=== PATIENT | female | born 1985 | race Caucasian/White ===

== ENCOUNTER 2017-12-20 13:44 | Emergency (ER) | payer SELFPAY ==
[2017-12-20] MEDS ORDERED: Piperacill/Tazo 3.375gm in Dex 3.375 GM/50 ML BAG IVPB STA (14:29)
[2017-12-20] MEDS ORDERED: Lidocaine 1% Inj (20ml) INFIL ONE (14:33)
[2017-12-20] MEDS ORDERED: Lidocaine Hydrochloride 5 ML INJ ONE (14:44)
[2017-12-20] MEDS ORDERED: Piperacillin/Tazobact 3.375 gm 100 ML IVPB ONE (14:45)
[2017-12-20] MEDS ORDERED: Vancomycin 1 gm/NS 200 ml 1 GM/200 ML BAG IVPB SCH (15:00)
[2017-12-20 15:08] LABS: BASO % 0.4 % (0.0-2.0); EOS % 0.4 % (0.0-4.0); HEMOGLOBIN 11.4 g/dL (11.0-16.0); LYMPH # 1.3 K/uL (1.0-4.3); LYMPH % 12.8 % (20.0-40.0); MEAN CORPUSCULAR HEMOGLOBIN 27.6 pg (27.0-31.0); MEAN CORPUSCULAR HGB CONC 33.6 g/dL (33.0-37.0); MEAN PLATELET VOLUME 9.5 fL (7.2-11.7); MONO # 0.8 K/uL (0.0-0.8); MONO % 7.6 % (0.0-10.0); NEUT # 7.8 K/uL (1.8-7.0); NEUT % 78.8 % (50.0-75.0); RBC 4.12 Mil/uL (3.80-5.20); RED CELL DISTRIBUTION WIDTH 13.6 % (11.5-14.5); WHITE BLOOD COUNT 9.9 K/uL (4.8-10.8)
[2017-12-20 15:21] LABS: ALBUMIN 3.6 g/dL (3.5-5.0); ALT/SGPT 19 U/L (9-52); AST/SGOT 18 U/L (14-36); BLOOD UREA NITROGEN 10 mg/dL (7-17); CALCIUM 9.1 mg/dl (8.6-10.4); GFR AFRICAN-AMERICAN > 60; GFR NON-AFRICAN AMERICAN > 60
--- NOTE | 2017-12-20 15:21 | C.PDOC ---
History Of Present Illness 32 y/o female, 12 weeks , sent to ER from [facility] for evaluation of abscess on right dominant hand. Patient states symptoms began 3 days ago. Denies fever. Time Seen by Provider: 12/20/17 14:04 Chief Complaint (Nursing): Abnormal Skin Integrity History Per: Patient History/Exam Limitations: no limitations Onset/Duration Of Symptoms: Days (3) Current Symptoms Are (Timing): Still Present Location Of Injury: Right: Hand Recent travel outside of the [place]: No Past Medical History Reviewed: Historical Data, Nursing Documentation, Vital Signs Vital Signs: Last Vital Signs Temp 98.9 F 12/20/17 16:39 Pulse 80 12/20/17 16:39 Resp 18 12/20/17 16:39 BP 118/76 12/20/17 16:39 Pulse Ox 100 12/21/17 12:00 - Medical History PMH: No Chronic Diseases Surgical History: No Surg Hx Family History: States: No Known Family Hx - Social History Hx Alcohol Use: No Hx Substance Use: No Review Of Systems Except As Marked, All Systems Reviewed And Found Negative. Skin: Positive for: Other (Abscess on right dominant hand ) Physical Exam - Physical Exam Appears: Non-toxic, No Acute Distress Skin: Other (erythematous, fluctuant tender region to her right hypothenar eminence region with some mild streaking to right forearm) Head: Atraumatic, Normacephalic Eye(s): bilateral: Normal Inspection, PERRL, EOMI Nose: Normal Oral Mucosa: Moist Neck: Supple Chest: Symmetrical, No Tenderness Cardiovascular: Rhythm Regular, No Murmur Respiratory: Normal Breath Sounds, No Decreased Breath Sounds, No Rales, No Rhonchi, No Wheezing Gastrointestinal/Abdominal: Soft, No Tenderness Extremity: Normal ROM, No Deformity Extremity: Bilateral: Normal Color And Temperature, Normal ROM Neurological/Psych: Oriented x3, Normal Speech, Normal Cognition, Normal Motor, Normal Sensation Gait: Steady ED Course And Treatment - Laboratory Results Result Diagrams: 12/20/17 15:05 12/20/17 15:05 O2 Sat by Pulse Oximetry: 100 (RA) Pulse Ox Interpretation: Normal - Incision & Drainage Of Abscess Anesthesia: Lidocaine 1% (3cc) Procedure: Incised W/Scalpel Blade#: (11), Drained Pus (Puss and blood sent for culture ), Packed W/Gauze (Size of I&D unable to pack ), Cultures Obtained And Sent To Lab Medical Decision Making Medical Decision Making: Administered antibiotics Ordered blood work and wound culture. Patient advised to return for wound check tomorrow. Impression: - Abscess Disposition Counseled Patient/Family Regarding: Studies Performed, Diagnosis, Need For Followup, Rx Given - Disposition Disposition: HOME/ ROUTINE Disposition Time: 16:11 Condition: STABLE Additional Instructions: follow up in ER tomorrow for wound check call to make an appointment take medications as prescribed return to ER if symptoms worsens or progress Prescriptions: Amoxicillin/Clavulanate [Augmentin 875 MG-125 MG] 1 tab PO BID 10 Days #20 tab Instructions: Skin Abscess Forms: Gen Discharge Inst Iraqi, [employer] (Iraqi), Work Excuse Print Language: IRAQI - Clinical Impression Clinical Impression: Abscess, - Scribe Statement The provider has reviewed the documentation as recorded by the Betsyibirina Montes De Oca All medical record entries made by the Betsyibirina were at my direction and personally dictated by me. I have reviewed the chart and agree that the record accurately reflects my personal performance of the history, physical exam, medical decision making, and the department course for this patient. I have also personally directed, reviewed, and agree with the discharge instructions and disposition.
[2017-12-20 16:40] VITALS: BP 118/76; PULSE 80; RESP 18; TEMP 98.9
[2017-12-20 16:43] VITALS: O2SAT 100
== END 2017-12-20 16:45 | disposition home or self-care (01) ==
LOC: C.ER 13:44
DX: L02.511 Cutaneous abscess of right hand (principal); O26.891 Other specified pregnancy related conditions, first trimester; Z3A.12 12 weeks gestation of pregnancy
CPT/HCPCS: 10060; 80053; 85025; 87070; 87181; 96374; 96375; 99284; J2543; J7050

== ENCOUNTER 2017-12-21 12:16 | Emergency (ER) | payer SELFPAY ==
[2017-12-21 12:29] VITALS: BMI 21.9
[2017-12-21 12:31] VITALS: BP 114/74; PULSE 79; RESP 20; TEMP 98.8; O2SAT 97
[2017-12-21] MEDS ORDERED: Amoxicillin-Clav 875-125 mg Tab PO STA (12:42)
--- NOTE | 2017-12-21 12:45 | C.PDOC ---
History Of Present Illness 32yo female, currently 12 weeks , presents to the ED for a wound check after she had an I&D yesterday of an abscess on her right hypothenar region. She denies any new injuries, increased redness or swelling to the area. She also denies any abdominal pain, vaginal bleeding or discharge. Patient reports she did not take the prescribed antibiotics from yesterday but has improvement to her symptoms; denies any fevers or chills. PMD: [facility] Time Seen by Provider: 12/21/17 12:26 Chief Complaint (Nursing): Wound Check History Per: Patient History/Exam Limitations: no limitations Onset/Duration Of Symptoms: Days Ago Current Symptoms Are (Timing): Better Location Of Injury: Right: Hand (hypothenar region) Additional History Per: Patient Past Medical History Reviewed: Historical Data, Nursing Documentation, Vital Signs Vital Signs: Last Vital Signs Temp 98.8 F 12/21/17 12:29 Pulse 79 12/21/17 12:29 Resp 20 12/21/17 12:29 BP 114/74 12/21/17 12:29 Pulse Ox 97 12/21/17 12:45 - Medical History PMH: No Chronic Diseases Surgical History: No Surg Hx Family History: States: No Known Family Hx - Social History Hx Tobacco Use: No Hx Alcohol Use: No Hx Substance Use: No Review Of Systems Except As Marked, All Systems Reviewed And Found Negative. Constitutional: Negative for: Fever, Chills Skin: Positive for: Other (wound check of I&D site on right hypothenar region) Physical Exam - Physical Exam Appears: Non-toxic, No Acute Distress Skin: Warm, Dry, Other (improvement to area of rednewss and swelling on right hypothenar region; +mild purulent discharge. no lymphangitis noted.) Eye(s): bilateral: Normal Inspection Neck: Normal ROM, Supple Chest: Symmetrical Cardiovascular: Rhythm Regular Respiratory: Normal Breath Sounds Gastrointestinal/Abdominal: Soft, No Tenderness ED Course And Treatment O2 Sat by Pulse Oximetry: 97 (RA) Pulse Ox Interpretation: Normal Medical Decision Making Medical Decision Making: Impression: Wound check Plan: -- Augmentin 1 tab PO Patient's prescription switched from Augmentin to Kefflex due to insurance issues. Patient instructed to take antibiotics as prescribed and to follow up with her PMD in 2-3 days. Disposition Counseled Patient/Family Regarding: Diagnosis, Need For Followup - Disposition Referrals: [facility] [Outside] Disposition: HOME/ ROUTINE Disposition Time: 12:44 Condition: STABLE Additional Instructions: follow up with medical clinic in 2 days call to make an appointment take medications as prescribed return to ER if symptoms worsens or progress Prescriptions: Cephalexin [Keflex] 500 mg PO QID #40 capsule Instructions: Wound Care (DC), Wound Care Forms: [facility] (Uruguayan), Gen Discharge Inst Uruguayan Print Language: MOHAW[place] - Clinical Impression Clinical Impression: Wound check, abscess - Scribe Statement The provider has reviewed the documentation as recorded by the Scribe (Ana Nur) Provider Attestation: All medical record entries made by the Scribe were at my direction and personally dictated by me. I have reviewed the chart and agree that the record accurately reflects my personal performance of the history, physical exam, medical decision making, and the department course for this patient. I have also personally directed, reviewed, and agree with the discharge instructions and disposition.
[2017-12-21] MEDS ORDERED: Amoxicillin-Clav 875-125 mg Tab PO ONE (12:50)
== END 2017-12-21 13:00 | disposition home or self-care (01) ==
LOC: C.ER 12:16
DX: Z51.89 Encounter for other specified aftercare (principal); L02.91 Cutaneous abscess, unspecified

== ENCOUNTER 2018-06-16 12:13 | Inpatient (IN) | payer MEDICAID, SELFPAY ==
--- NOTE | 2018-06-16 13:17 | OBHP ---
Datetime: 06/16/2018 12:45 IP Adm Impression: Term, intrauterine IP Admit Plan: Observation/Evaluation Admit Comment, IP Provider: with IUP at 38 weeks by LMP 09/23 with EAN 06/30 confirmed with US p resents with complaints of mild contractions and vaginal spotting x 1 this morning +FM +CTX - LOF -VB POB: G1 2000 FT female 7lb 4oz G2 2008 FT male 7lb 6oz G3 2011 FT female 7lb 5oz G4 current, known vellamentous cord insertion seen on repeat US FLARE BREAKER: LMP 09/23, regular cycles, denies STD, normal paps PMH: denies PSH: denies no known family hx NKDA taking vitamins in A/P multigravida, r/o labor, elevatd BPs current BPs are elevated, normal BPs in clinic chart will obtain PIH labs EFM/[place] while under observation for signs/symptoms of labor Pelvic Type - PN: Adequate Extremities - PN: Not Done Abdomen - PN: Not Done Back - PN: Not Done Breast - PN: Not Done Lungs - PN: Normal Heart - PN: Normal Thyroid - PN: Not Done Neurologic - PN: Normal HEENT - PN: Not Done General - PN: Normal FHR - Baseline A Provider: 150s Membranes, Provider: Intact EGA AdmitDate IP: 39.0 Vital Signs Provider: Reviewed IP Chief Complaint: Uterine contractions FHR Category Provider Fetus A: Category I NICHD Decel Fetus A IP Provider: None Dilatation, Provider: 1 Effacement, Provider: long Station, Provider: -3 Genitourinary Exam: Normal DTRs - PN: Normal
[2018-06-16] MEDS ORDERED: Lactated Ringer's 1,000 ML IV SCH (13:30)
[2018-06-16 13:41] LABS: BASO # 0.1 K/uL (0.0-0.2); BASO % 0.7 % (0.0-2.0); EOS % 0.4 % (0.0-4.0); HEMOGLOBIN 13.1 g/dL (11.0-16.0); LYMPH # 1.5 K/uL (1.0-4.3); LYMPH % 16.1 % (20.0-40.0); MEAN CORPUSCULAR HEMOGLOBIN 29.7 pg (27.0-31.0); MEAN CORPUSCULAR HGB CONC 34.3 g/dL (33.0-37.0); MEAN PLATELET VOLUME 10.9 fL (7.2-11.7); MONO # 0.5 K/uL (0.0-0.8); MONO % 5.6 % (0.0-10.0); NEUT # 7.1 K/uL (1.8-7.0); NEUT % 77.2 % (50.0-75.0); RBC 4.43 Mil/uL (3.80-5.20); RED CELL DISTRIBUTION WIDTH 13.9 % (11.5-14.5); WHITE BLOOD COUNT 9.2 K/uL (4.8-10.8)
[2018-06-16 13:42] LABS: MEAN CELL VOLUME 86.4 fL (81.0-99.0)
[2018-06-16 13:53] LABS: URINE BACTERIA RARE (<OCC); URINE BILIRUBIN NEGATIVE (NEGATIVE); URINE BLOOD 1+ (NEGATIVE); URINE CLARITY Clear (Clear); URINE COLOR Yellow (YELLOW); URINE GLUCOSE (UA) NORMAL (Normal); URINE LEUKOCYTE ESTERASE NEG Leu/uL (Negative); URINE PROTEIN 2+ mg/dL (NEGATIVE); URINE UROBILINOGEN NORMAL mg/dL (0.2-1.0)
[2018-06-16 13:55] LABS: INR 0.9; PROTHROMBIN TIME 10.2 SECONDS (9.7-12.2)
[2018-06-16 13:57] LABS: ALB/GLOB RATIO 0.8 (1.0-2.1); ALBUMIN 2.8 g/dL (3.5-5.0); ALT/SGPT 22 U/L (9-52); AST/SGOT 27 U/L (14-36); BLOOD UREA NITROGEN 14 mg/dL (7-17); GFR NON-AFRICAN AMERICAN > 60
[2018-06-16] MEDS ORDERED: Lactated Ringer's 1,000 ML IV ONE (14:12)
--- NOTE | 2018-06-16 14:37 | OBADHP ---
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, regular cycles, denies STD PMH: denies PSH: denies no known family hx NKDA taking vitamins in A/P multigravida, gestational HTN PIH labs pending currently no signs or symptoms EFM/[place] IVF/NPO Cervidil for cervical ripening plan of care explained to patient, expressed understanding Pelvic Type - PN: Adequate Extremities - PN: Not Done Abdomen - PN: Not Done Back - PN: Not Done Breast - PN: Not Done Lungs - PN: Normal Heart - PN: Normal Thyroid - PN: Not Done Neurologic - PN: Normal HEENT - PN: Normal General - PN: Normal FHR - Baseline A Provider: 150s Vital Signs Provider: Reviewed IP Chief Complaint: Signs/Symptoms Gestational HTN FHR Category Provider Fetus A: Category I Dilatation, Provider: 1 Genitourinary Exam: Not Done DTRs - PN: Normal EGA AdmitDate IP: 39.0 IP Adm Impression: Term, intrauterine IP Admit Plan: Admit to unit Datetime: 06/16/2018 12:45 Membranes, Provider: Intact NICHD Decel Fetus A IP Provider: None Effacement, Provider: long Station, Provider: -3
[2018-06-16] MEDS ORDERED: Aluminum Hydroxide/Magnesium Hydroxide Susp (30 mL) ONE (15:16)
[2018-06-16] MEDS ORDERED: Nalbuphine HCL 10 mg/ml Ampule IVP ONE (19:47)
--- NOTE | 2018-06-16 19:54 | OBPN ---
Datetime: 06/16/2018 19:47 IP Progress Impression: Normal progression of labor IP Procedures: Sterile Vag Exam IP Progress Plan: Continue present management Membranes, Provider: Intact FHR - Baseline A Provider: 150 IP Progress Note Comment: at 38 weeks, induction for gHTN PIH labs negative, no signs or symptoms of preeclampsia patient reports +FM +CTX - LOF - VB desires pain medication will give nubain and benadryl continue to monitor will give antihypertensive if BP consistently >160/100 currently BP range 140-150/80-90 plan of care explained to patient and support person at bedside Vital Signs Provider: Reviewed FHR Category Provider Fetus A: Category I Dilatation, Provider: 2-3 Effacement, Provider: 50 Station, Provider: -2 Datetime: 06/16/2018 12:45 NICHD Decel Fetus A IP Provider: None
[2018-06-16] MEDS ORDERED: DiphenhydrAMINE 50 mg/ml Inj IVP STA (20:04)
[2018-06-16] MEDS ORDERED: Fentanyl/Bupivacaine HCl 250 ML EPI ONE (21:17)
--- NOTE | 2018-06-16 23:02 | OBPN ---
Datetime: 06/16/2018 19:47 IP Progress Note Comment: at 38 weeks, induction for gHTN s/p epidural maternal hypotension lead to irreg FHR, mother given ephederine, maternal BPs increased, FHR imrpo lloyd mother positioned on side with IVF running and oxygen in place SVE 8/90/0, cervidil removed continue to monitor anticipate vaginal delivery
[2018-06-17] MEDS ORDERED: Benzocaine/Menthol 20%-0.5% Topical Spray (60 ml) TOP PRN (01:18)
--- NOTE | 2018-06-17 01:27 | OBDS ---
DELIVERY PERSONNEL Delivery Doctor: STEPHON KANG Alligator Shear Operator: Gloria Anne RN, C Anesthesiologist: MD SILVINA MATERNAL INFORMATION Delivery Anesthesia: Epidural Medications in Delivery: PITOCIN Estimated Blood Loss (ml): 300 Placenta Cultured: No Maternal Complications: None RN Comments: ALIVE MALE INFANT DELIVERED WITH INTACT PERINIUM, DR SARABIA ATTENDED DELIVERY. INFANT AT TENDED BY KIRSTIN COLLAZO RNC Provider Comments: patient delivered viable male over intact perineum. nuchal cord and right arm cord x 1 were reduced after delivery. cord clamped and cut by FOB. placenta delivered with 3 ves catrachita cord. patient had a diagnosis of vellamentous cord insertion by US. no lacerations noted. Apgars 9/9. EBl 300cc. all counts correct x 2. LABOR SUMMARY EDC: 06/30/2018 00:00 No. Babies in Womb: 1 Attempted: No Labor Anesthesia: Epidural LABOR INFORMATION Onset of Labor: 06/17/2018 16:34 Complete Dilatation: 06/17/2018 00:39 Cervical Ripening Agents: Cervidil (Annotations: [address] jonn sarabia) Oxytocin: N/A Group B Beta Strep: Negative Antibiotics # of Doses: NONE Steroids Given: None Reason Steroids Not Administered: Not Applicable MEMBRANES Membranes Rupture Method: Artificial Rupture of Membranes: 06/16/2018 22:18 Length of Rupture (hrs): 2.50 STAGES OF LABOR Stage 1 hrs: -15 Stage 1 min: -55 Stage 2 hrs: 0 Stage 2 min: 9 Stage 3 hrs: 0 Stage 3 min: 17 Total Time in Labor hrs: -15 Total Time in Labor min: -29 VAGINAL DELIVERY Episiotomy: None Laceration Extension: N/A Laceration Type: None Laceration Repair: Not Applicable Laceration Repair Note: no repair Initial Vag Sponge Count: 10+1 Final Vag Sponge Count: 10 + 1 Initial Vag Sharps Count: 0 Final Vag Sharps Count: 0 Sponge Count Correct: Vaginal Sweep Performed Sharps Count Correct: N/A BABY A INFORMATION Infant Delivery Date/Time: 06/17/2018 00:48 Method of Delivery: Vaginal Born in Route : No : N/A Forceps: N/A Vacuum Extraction: N/A Shoulder Dystocia : No SHOULDER DYSTOCIA BABY A Delivery Date/Time: 06/17/2018 00:48 PRESENTATION/POSITION BABY A Presentation: Cephalic Cephalic Presentation: Vertex Vertex Position: Right Occipital Anterior Breech Presentation: N/A PLACENTA INFORMATION BABY A Placenta Delivery Time : 06/17/2018 01:05 Placenta Method of Delivery: Spontaneous Placenta Status: Delivered SCORES BABY A Heart Rate 1 min: >100 bpm Resp Effort 1 min: Good Cry Reflex Irritability 1 min: Cough or Sneeze or Pulls Away Muscle Tone 1 min: Active Motion Color 1 min: Body [place], Extremities Blue SCORE 1 MIN: 9 Heart Rate 5 min: >100 bpm Resp Effort 5 min: Good Cry Reflex Irritability 5 min: Cough or Sneeze or Pulls Away Muscle Tone 5 min: Active Motion Color 5 min: Body [place], Extremities Blue SCORE 5 MIN: 9 INFORMATION BABY A Gestational Age at Delivery: 38.1 Gestational Status: Term Outcome : Liveborn Infant Condition : Stable Infant Sex: Male IDENTIFICATION/MEDS BABY A ID Band Number: [id number] ID Band Location: Left Leg; Left Arm Sensor Applied: Yes Sensor Number: [id number] Sensor Location : Cord Clamp Vitamin K Given : Not Given Erythromycin Given: Not Given WEIGHT/LENGTH BABY A Infant Birthweight (gms): 2695 Infant Weight (lb): 5 Weight (oz): 15 Infant Length Inches: 19.00 Infant Length cms: 48.3 CORD INFORMATION BABY A No. Cord Vessels: 3 Nuchal Cord : Around Neck x1, Loose True Knot: VELAMENTOUS CORD Cord Blood Taken: Yes Infant Suction: Mouth ASSESSMENT BABY A Infant Complications: Other Complications Other: VELAMENTOUS CORD INSERTION Physical Findings at Delivery: Within Normal Limits Respirations: Appears Normal Retail Event And Sales Assistant/ALS Called : No Care By: KIRSTIN COLLAZO RNC Transferred To: Remains with Mother
[2018-06-17] MEDS ORDERED: Oxytocin 20 units in LR 2,000 ML IV ONE (01:52)
[2018-06-17 07:40] LABS: MEAN CELL VOLUME 86.8 fL (81.0-99.0); RBC 4.11 Mil/uL (3.80-5.20)
[2018-06-17 07:53] LABS: BASO % 0.4 % (0.0-2.0); LYMPH # 1.5 K/uL (1.0-4.3); LYMPH % 13.2 % (20.0-40.0); MEAN CORPUSCULAR HEMOGLOBIN 29.3 pg (27.0-31.0); MEAN CORPUSCULAR HGB CONC 33.8 g/dL (33.0-37.0); MEAN PLATELET VOLUME 10.1 fL (7.2-11.7); MONO # 0.7 K/uL (0.0-0.8); NEUT # 9.3 K/uL (1.8-7.0); NEUT % 80.4 % (50.0-75.0); NRBC % 0.1 % (0.0-2.0); RED CELL DISTRIBUTION WIDTH 13.6 % (11.5-14.5); WHITE BLOOD COUNT 11.6 K/uL (4.8-10.8)
[2018-06-17] MEDS: Multiple Vitamins Tab PO SCH (10:03)
[2018-06-18 08:20] LABS: HEMOGLOBIN 12.2 g/dL (11.0-16.0); MEAN CELL VOLUME 86.2 fL (81.0-99.0); MEAN CORPUSCULAR HEMOGLOBIN 29.6 pg (27.0-31.0); MEAN CORPUSCULAR HGB CONC 34.4 g/dL (33.0-37.0); MEAN PLATELET VOLUME 9.9 fL (7.2-11.7); RBC 4.11 Mil/uL (3.80-5.20); RED CELL DISTRIBUTION WIDTH 13.5 % (11.5-14.5); WHITE BLOOD COUNT 9.4 K/uL (4.8-10.8)
[2018-06-18 08:33] LABS: ALB/GLOB RATIO 0.8 (1.0-2.1); ALBUMIN 2.6 g/dL (3.5-5.0); ALT/SGPT 50 U/L (9-52); AST/SGOT 55 U/L (14-36); BILIRUBIN,DIRECT 0.3 mg/dL (0.0-0.4); BLOOD UREA NITROGEN 13 mg/dL (7-17); CALCIUM 8.3 mg/dl (8.6-10.4); GFR NON-AFRICAN AMERICAN > 60
[2018-06-18] MEDS: Multiple Vitamins Tab PO SCH (09:31)
--- NOTE | 2018-06-18 10:29 | OBPPN ---
Datetime: 06/18/2018 07:20 PP Pain Prov: Within normal limits PP Nausea Prov: Denies PP Flatus Prov: Yes PP BM Prov: Yes PP Heart Prov: Normal PP Lungs Prov: Normal PP Abdomen/Uterus Prov: Normal PP Lochia Prov: Normal PP Vulva/Perineum Prov: Normal PP CVA Tenderness Prov: Normal PP Extremities Prov: Normal PP C/S Incision Prov: Not Applicable PP Progress Prov: Normal PP Comments Phys Exam Prov: Gen: NAD Heart: S1, S2, RRR Lung: CTA, B/L Abd: soft, non tender, no rebound, fundal height at umbilicus level Ext: palpable pulses, no edema, no cyanosis All other systems reviewed and are negative PP Impression Prov: Normal progression PP Plan Prov: Continue present management; consult PP Progress Note Prov: 32 y/o s/p PPD#1. Patient is doing well. Ambulating in her room, tolerating her regular diet, drinking enough amount of water. Passed flatus, and had BM. Minimal vaginal bleeding. Patient denied symptoms of chest pain, cough, N/V, fever, chills. Vital signs stable. H/H stable. Baby male is doing well. Needs circumcision for he baby boy. Normal PP progression Advance care Consent obtained for circumcision Vitals signs stable. Afebrile Encourage ambulation, PO hydration Pain management consult Anticipate discharge tomorrow Case reviewed and plan discussed with attending Dr. Fredi Lara DO, PGY1 Attending Note: patient seen and evaluated by me with the Resident. I agree with the above as docu mented. Consent obtained for male circumcision using [email or web address], [place] [id number]. After d iscusison of risks and possible complications, patient's questions were answered and addressed. Conse nt was signed, dated, witnessed and placed in the chart. Patient is clincially stable. IP PP Procedures: None Vital Signs Provider PP: Reviewed; Within Normal Limits
[2018-06-19] MEDS: Multiple Vitamins Tab PO SCH (10:31)
--- NOTE | 2018-06-19 10:47 | OBDCSUM ---
Datetime: 06/19/2018 10:42 Discharged to, Provider: Home Follow up at, Provider: clinic Disch Instr Diet: Regular Discharge Instructions, Provider: Routine instructions given Discharge Diagnosis, Provider: Term Delivered Discharge Time: 06/19/2018 10:42 Follow up in weeks, Provider: 6 weeks Disch Referrals: None Disch Activity Restrictions: No sexual activity; Nothing in vagina - Meno, tampons, douche Contraception after Delivery: IUD
--- NOTE | 2018-06-19 10:47 | OBPPN ---
Datetime: 06/19/2018 07:05 PP Pain Prov: Within normal limits PP Nausea Prov: Denies PP Flatus Prov: Yes PP BM Prov: Yes PP Breasts Prov: Not Done PP Heart Prov: Normal PP Lungs Prov: Normal PP Abdomen/Uterus Prov: Normal PP Lochia Prov: Normal PP Vulva/Perineum Prov: Not Done PP CVA Tenderness Prov: Not Done PP Extremities Prov: Not Done PP C/S Incision Prov: Not Applicable PP Progress Prov: Normal PP Comments Phys Exam Prov: Gen: NAD Heart: S1, S2, RRR Lung: CTA, B/L Abd: soft, non tender, no rebound, fundal height at umbilicus level Ext: palpable pulses, 1+ b/l foot edema, no cyanosis. no calf tenderness, no motor deficits PP Impression Prov: Normal progression PP Plan Prov: Continue present management; Discharge PP Progress Note Prov: 32 y/o s/p PPD#2. Patient is doing well. Ambulating in her room, tolerating her regular diet, drinking enough amount of water. Passed flatus, and had BM. Minimal vaginal bleeding. Patient denied symptoms of chest pain, cough, N/V, fever, chills. Vital signs stable. H/H stable. Baby male is doing well. Breast-fed only. circumcision to be done today, consent obtained. Normal PP progression Advance care Vitals signs stable. Afebrile Encourage ambulation, leg elevation to reduce lower limb edema Encourage PO hydration Pain management compression stocking Circumcision for baby Discharge home today Case reviewed and plan discussed with attending Dr. Joaquin Lara, DO, PGY1 IP PP Procedures: None Vital Signs Provider PP: Reviewed; Within Normal Limits
[2018-06-19] MEDS ORDERED: Influenza Vaccine 60 MCG/0.5 ML SYR (3 yr & up) IM ONE (12:29)
[2018-06-19 20:05] VITALS: BP 131/87; PULSE 83; RESP 18; TEMP 98; O2SAT 97
== END 2018-06-19 15:15 | disposition home or self-care (01) | DRG 560 ==
LOC: C.EROB 12:13 → C.4D 14:18 → C.4M 06-17 03:35
PROVIDERS: ADMIT Obstetrics & Gynecology; ATTEND Obstetrics & Gynecology
PROC: 10E0XZZ Delivery of Products of Conception, External Approach (ICD-10-PCS; principal; 2018-06-17)
PROC: 10907ZC Drainage of Amniotic Fluid, Therapeutic from Products of Conception, Via Natural or Artificial Opening (ICD-10-PCS; 2018-06-17)
PROC: 3E0P7VZ Introduction of Hormone into Female Reproductive, Via Natural or Artificial Opening (ICD-10-PCS; 2018-06-17)
DX: O13.4 Gestational [pregnancy-induced] hypertension without significant proteinuria, complicating childbirth (principal); O69.1XX0 Labor and delivery complicated by cord around neck, with compression, not applicable or unspecified; O43.123 Velamentous insertion of umbilical cord, third trimester; Z3A.38 38 weeks gestation of pregnancy; Z37.0 Single live birth